=== PATIENT | female | born 1970 | race Caucasian/White ===

== ENCOUNTER 2019-11-23 14:19 | Emergency (ER) | payer OTHER, MEDICARE ==
[~2019-11-23] VITALS: Ht 154.9 cm; Wt 64.4 kg
--- NOTE | ~2019-11-23 | EKG ---
[place] [address] ELECTROCARDIOGRAM REPORT Name: DIANNE LOYA Room: [facility]#: [id number] Admission: Attend Phys: Discharge: Date of : 74 Date of Service: 11/23/191421 Report #: [id number] THIS REPORT FOR: //name// [facility] ED Test Date: 2019-11-23 Test Time: 14:22:08 Pat Name: DIANNE SHALINI Department: Room: Gender: F Water [employer]: [place] : 1970 Requested By: Pascale Mohamud Order Number: [id number] Reading MD: Measurements Intervals [place] Rate: 103 P: 74 [place]: 133 QRS: 60 QRSD: 82 T: 56 QT: 328 QTc: 430 Interpretive Statements Sinus tachycardia No previous ECG available for comparison [email or web address] By: 21 21 Epiphany MD Leeann /EPI
[2019-11-23 15:05] LABS: HEMATOCRIT 37.7 % (37.0-47.0); HEMOGLOBIN 12.5 gm/dL (12.0-15.0); MCH 26.7 pg (26.0-34.0); MCHC 33.2 g/dL (28.0-37.0); MCV 80.3 fL (80.0-100.0); MPV 8.6 fl. (7.2-11.1); RBC 4.7 mil/uL (4.20-5.00); RDW-CV 16.5 % (10.5-14.5)
[2019-11-23] MEDS ORDERED: VYVANSE70 MG PO (15:11)
[2019-11-23] MEDS ORDERED: DULOXETINE HCL60 MG PO (15:12)
[2019-11-23] MEDS ORDERED: LEVO-T50 MCG PO (15:12)
[2019-11-23] MEDS ORDERED: LISINOPRIL2.5 MG PO (15:12)
[2019-11-23] MEDS ORDERED: TOPAMAX100 MG PO (15:12)
[2019-11-23] MEDS ORDERED: MIRAPEX0.125 MG PO (15:12)
[2019-11-23 15:18] LABS: CALCIUM 9.6 mg/dL (8.5-10.1); CREATININE 0.9 mg/dL (0.6-1.3); POTASSIUM 3.4 mmol/L (3.5-5.1)
[2019-11-23 15:22] LABS: SALICYLATE < 2.8 mg/dL (2.8-20.0)
[2019-11-23 15:23] LABS: ACETAMINOPHEN < 2 ug/mL (10-30); ALBUMIN 4.2 g/dL (3.4-5.0); ALCOHOL < 10 mg/dL (<10); TOTAL BILIRUBIN 0.3 mg/dL (<0.1-1.0)
[2019-11-23 15:48] VITALS: BP 148/102
--- NOTE | 2019-11-23 16:08 | EKG ---
[place] [address] ELECTROCARDIOGRAM REPORT Name: DIANNE LOYA Room: [facility]#: [id number] Admission: 11/23/19 Attend Phys: Discharge: 11/23/19 Date of : 74 Date of Service: 11/23/19 1422 Report #: [id number] THIS REPORT FOR: //name// [facility] ED Test Date: 2019-11-23 Test Time: 14:22:08 Pat Name: DIANNE LOYA Department: Room: Gender: Title Specialist: [place] : 1970 Requested By: Pascale Mohamud Order Number: [id number] MD: Norbert Jensen Measurements Intervals [place] Rate: 103 P: 74 ME: 133 QRS: 60 QRSD: 82 T: 56 QT: 328 QTc: 430 Interpretive Statements Sinus tachycardia No previous ECG available for comparison Electronically Signed On 11-23-2019 16:06:20 CDT by Norbert Jensen [email or web address] <ELECTRONICALLY SIGNED> By: Norbert Jensen MD, [facility] 11/23/19 1606 142 142 Norbert Jensen MD, FACC /EPI
== END 2019-11-23 15:50 | disposition left against medical advice (07) ==
LOC: M.ERS 14:19
PROVIDERS: Personal Emergency Response Attendant
DX: F22 Delusional disorders (principal); R00.2 Palpitations; I10 Essential (primary) hypertension; E03.9 Hypothyroidism, unspecified; Z98.890 Other specified postprocedural states; Z88.0 Allergy status to penicillin; Z79.899 Other long term (current) drug therapy